=== PATIENT | female | born 1965 | race Caucasian/White ===

== ENCOUNTER → 2016-12-13 | Outpatient (CLI) | payer MEDICARE ==
[~2016-12-13] MED LIST: ALBU8.5H3 INH; ALBU8.5H5 INH; AMOX400S2 PO; ASCO500T12 PO; BUPR1PAT TD; CA C1TAB28 PO; CALC-545 PO; CALC1CAP3 PO; CEPH250S PO; CETI-237 PO; CHOL100011 PO; CYAN1TAB29 SL; DIAZ1KIT PO; DOCU100C8 PO; ESTR25PO42 TP; FERR325C; FERR325T20 PO; FLUT10SP NAS; FLUT16SP NAS; FOLI1TAB7 PO; HYDR-3241 PO; HYDR-3307 PO; HYDR15SO3 PO; LIQUID IRON PO; MAGN400T7 PO; MEDICINAL MARIJUANA; MULT-124 PO; MULT-34 PO; OLME1TAB PO; OMEG1TAB2 PO; OMEP-110 PO; ONDA8TAB12 SL; ROPI0.5T2 PO; SENN8.6T98 PO; SERT50TA5 PO; SILD50TA PO; THYR30TA PO; THYR48.7 PO; VITA400C40 PO; [UNRECOGNIZED DRUG - CODE] PO
== END | disposition home or self-care (01) ==
LOC: CFH 12:54
PROVIDERS: ATTEND Internal Medicine Cardiovascular Disease
DX: R42 Dizziness and giddiness (principal); G43.909 Migraine, unspecified, not intractable, without status migrainosus; I08.2 Rheumatic disorders of both aortic and tricuspid valves; I37.1 Nonrheumatic pulmonary valve insufficiency
CPT/HCPCS: 93306

== ENCOUNTER 2019-07-12 09:34 | Emergency (ER) | payer MEDICARE ==
[~2019-07-12] VITALS: Ht 157.5 cm; Wt 78.0 kg
[~2019-07-12 09:34] MED LIST changes: -ALBU8.5H3 INH; +ALBU8.5H8 INH; +ASCO-254 PO; -ASCO500T12 PO; -BUPR1PAT TD; +BUPR1PAT7 TD; +CENTRUM CHEWAB1 EACH PO; +DOCU100C33 PO; -DOCU100C8 PO; +FERR325T18 PO; -FERR325T20 PO; -FLUT16SP NAS; +FLUT16SP24 NAS; -FOLI1TAB7 PO; -HYDR-3307 PO; +HYDR-36 PO; -MAGN400T7 PO; +MAGN400T9 PO; -OLME1TAB PO; +OLME1TAB22 PO; +SERT50TA28 PO; -SERT50TA5 PO; -VITA400C40 PO; +VITA400C43 PO
[2019-07-12] MEDS ORDERED: ACETAMINOPHEN 500 MG TABLET ONE (09:47)
[2019-07-12] MEDS ORDERED: ACETAMINOPHEN 500 MG TABLET PO ONE (10:00)
--- NOTE | 2019-07-12 10:00 | NUR ---
jewel bearing turner: Pt to ed room 27 in NAD from lobby at this time
[2019-07-12 10:20] LABS: RAPID INFLUENZA A Negative (Negative); RAPID INFLUENZA B Negative (Negative)
--- NOTE | 2019-07-12 10:29 | NUR ---
Pt pushed in wheelchair to x-ray at this time from ED room. VS obtained, please see charting.
[2019-07-12 10:35] LABS: BASOPHILS # (AUTO) 0.01 x10^3/uL (0-0.1); BASOPHILS % (AUTO) 0 % (0-1); EOSINOPHILS # (AUTO) 0.01 x10^3/uL (0-0.4); EOSINOPHILS % (AUTO) 0 % (1-7); LYMPHOCYTES # (AUTO) 1.08 x10^3/uL (1-3.4); LYMPHOCYTES % (AUTO) 12 % (22-44); MD NO; MEAN CORPUSCULAR HEMOGLOBIN 30.5 pg (27.0-34.8); MEAN CORPUSCULAR HGB CONC 34.3 g/dL (32.4-35.8); MEAN PLATELET VOLUME 7.6 fL (7.4-10.4); MONOCYTES # (AUTO) 0.61 x10^3/uL (0.2-0.8); MONOCYTES % (AUTO) 7 % (2-9); NEUTROPHILS # (AUTO) 7.55 x10^3/uL (1.8-6.8); NEUTROPHILS % (AUTO) 82 % (42-75); PLATELET COUNT 233 x10^3/uL (130-400); RED BLOOD COUNT 4.35 x10^6/uL (3.82-5.3); RED CELL DISTRIBUTION WIDTH 12.9 % (9.6-15.2)
--- NOTE | 2019-07-12 10:39 | NUR ---
Pt ambulates contact assist x 1 from ED room to bathroom. NADN. No obvious defecits observed.
[2019-07-12 10:43] LABS: ALBUMIN 3.1 g/dL (3.4-5.0); ANION GAP 9 mmol/L (5-15); CALCIUM 8.6 mg/dL (8.5-10.1); CHLORIDE 108 mmol/L (98-107)
[2019-07-12 10:46] LABS: CREATINE KINASE, TOTAL 57 U/L (26-192); CREATININE 0.79 mg/dL (0.55-1.02)
[2019-07-12 11:11] LABS: CULTURE INDICATED? YES; MICROSCOPIC INDICATED
--- NOTE | 2019-07-12 11:52 | NUR ---
RECEIVED REPORT FROM PIPPA SMITH. ASSUMING CARE AT THIS TIME.
--- NOTE | 2019-07-12 11:53 | NUR ---
Provided report to SARAH Martini. All questions answered. NADN. No needs expressed. SARAH Martini to assume care of pt at this time.
[2019-07-12 12:10] VITALS: BP 122/79
--- NOTE | 2019-07-12 12:10 | NUR ---
ALL RESULTS ARE BACK AT THIS TIME. CHART UP FOR RECHECK.
--- NOTE | 2019-07-12 12:11 | NUR ---
PT RESTING COMFORTABLY ON [employer] PLAYING ON PHONE.
== END 2019-07-12 12:36 | disposition home or self-care (01) ==
LOC: ED 12:30
DX: J00 Acute nasopharyngitis [common cold] (principal); N30.01 Acute cystitis with hematuria; J45.909 Unspecified asthma, uncomplicated; K21.9 Gastro-esophageal reflux disease without esophagitis
CPT/HCPCS: 36415; 71046; 80048; 81001; 82040; 82550; 85025; 87086; 87400; 99284